=== PATIENT | male | born 1990 | race African-American/Black ===

== ENCOUNTER 2023-05-25 12:33 | Emergency (ER) | payer OTHER, SELFPAY | END 2023-05-25 15:21 | disposition left against medical advice (07) | LOC: CSHERS 12:33 | DX: H57.89 Other specified disorders of eye and adnexa (principal); E11.9 Type 2 diabetes mellitus without complications; K21.9 Gastro-esophageal reflux disease without esophagitis | CPT/HCPCS: 99283 ==

== ENCOUNTER 2024-01-10 21:13 | Emergency (ER) | payer OTHER, SELFPAY ==
[2024-01-10] MEDS ORDERED: HYDROcodone/Acetaminophen 5/325 mg Tablet ONE (23:12)
== END 2024-01-10 23:18 | disposition home or self-care (01) ==
LOC: CSHERS 21:13
DX: K04.7 Periapical abscess without sinus (principal); E11.9 Type 2 diabetes mellitus without complications; K21.9 Gastro-esophageal reflux disease without esophagitis; Z79.84 Long term (current) use of oral hypoglycemic drugs; Z55.6 Problems related to health literacy
CPT/HCPCS: 99282